=== PATIENT | female | born 1970 | race Caucasian/White ===

== ENCOUNTER 2020-07-07 09:03 | Day surgery (SDC) | payer OTHER, MEDICARE ==
[2020-07-07] MEDS ORDERED: Depo-Medrol 40 MG/ML IM ONE (09:04)
[2020-07-07] MEDS ORDERED: BUPIVACAINE 0.5% VIAL IJ ONE (09:04)
[2020-07-07] MEDS ORDERED: Ketamine HCl 50 MG/ML ONE (10:58)
[2020-07-07] MEDS ORDERED: DIPRIVAN 200 MG/20 ML IV ONE (10:58)
--- NOTE | 2020-07-07 11:37 | XRAY ---
Indication: Bilateral L4-S1 MBB. Intraoperative fluoroscopy was provided for 17 seconds. Single digital spot image submitted for interpretation demonstrate posterior needle tips projecting over the expected left and right L4-S1 nerve roots. Correlate with intraoperative findings/report.
--- NOTE | 2020-07-07 11:47 | XRAY ---
17 seconds fluoroscopy time in surgery for bilateral L4-S1 MBB.
[2020-07-07] MEDS ORDERED: Lactated Ringers 1,000 ML IV ONE (16:46)
== END 2020-07-07 11:25 | disposition home or self-care (01) ==
LOC: SDC-PAIN 09:03
PROVIDERS: ATTEND Psychiatry & Neurology Pain Medicine
DX: M47.816 Spondylosis without myelopathy or radiculopathy, lumbar region (principal); E11.9 Type 2 diabetes mellitus without complications; I10 Essential (primary) hypertension; E78.5 Hyperlipidemia, unspecified; Z79.899 Other long term (current) drug therapy; G47.30 Sleep apnea, unspecified
CPT/HCPCS: 64493; 64494; 72020; 77002; 82947; 82962; 84703; J1030; J2704

== ENCOUNTER 2020-08-18 07:51 | Day surgery (SDC) | payer OTHER, MEDICARE ==
[2020-08-18] MEDS ORDERED: Xylocaine 1% Vial 30 ML PF IJ ONE (07:52)
[2020-08-18] MEDS ORDERED: Depo-Medrol 40 MG/ML IM ONE (07:52)
[2020-08-18] MEDS ORDERED: BUPIVACAINE 0.5% VIAL IJ ONE (07:52)
--- NOTE | 2020-08-18 12:16 | XRAY ---
40 seconds fluoroscopy time in surgery for left L4-S1 RFA.
--- NOTE | 2020-08-18 12:21 | XRAY ---
Indication: Left L4-S1 RFA. Intraoperative fluoroscopy was provided for 40 seconds. 3 digital spot images submitted for interpretation demonstrate posterior needle tips projecting over the expected left L4-S1 nerve roots. Correlate with intraoperative findings/report.
[2020-08-18] MEDS ORDERED: Lactated Ringers 1,000 ML IV ONE (16:04)
== END 2020-08-18 09:37 | disposition home or self-care (01) ==
LOC: SDC-PAIN 07:51
PROVIDERS: ATTEND Psychiatry & Neurology Pain Medicine
DX: M47.816 Spondylosis without myelopathy or radiculopathy, lumbar region (principal); E11.9 Type 2 diabetes mellitus without complications; I10 Essential (primary) hypertension; G47.30 Sleep apnea, unspecified; E78.5 Hyperlipidemia, unspecified
CPT/HCPCS: 64635; 64636; 72100; 77002; 82947; 82962; 84703; J1030; J2001; J2704

== ENCOUNTER 2020-10-13 07:45 | Day surgery (SDC) | payer OTHER, MEDICARE ==
[2020-10-13] MEDS ORDERED: BUPIVACAINE 0.5% VIAL IJ ONE (07:46)
[2020-10-13] MEDS ORDERED: Xylocaine 1% Vial 30 ML PF IJ ONE (07:46)
[2020-10-13] MEDS ORDERED: Depo-Medrol 40 MG/ML IM ONE (07:46)
[2020-10-13] MEDS ORDERED: DIPRIVAN 200 MG/20 ML IV ONE (07:52)
[2020-10-13] MEDS ORDERED: Ketamine HCl 50 MG/ML ONE (07:52)
--- NOTE | 2020-10-13 12:51 | XRAY ---
Indication: Right L4-S1 RFA. Intraoperative fluoroscopy was provided for 53 seconds. 3 digital spot images submitted for interpretation demonstrates posterior needle tips projecting over the expected right L4-S1 nerve roots. Correlate with intraoperative findings/report.
--- NOTE | 2020-10-13 12:56 | XRAY ---
53 seconds fluoroscopy time in surgery for right L4-S1 RFA.
[2020-10-13] MEDS ORDERED: Lactated Ringers 1,000 ML IV ONE (14:03)
== END 2020-10-13 10:41 | disposition home or self-care (01) ==
LOC: SDC-PAIN 07:45
PROVIDERS: ATTEND Psychiatry & Neurology Pain Medicine
DX: M47.816 Spondylosis without myelopathy or radiculopathy, lumbar region (principal); E11.9 Type 2 diabetes mellitus without complications; I10 Essential (primary) hypertension; G47.30 Sleep apnea, unspecified; E78.5 Hyperlipidemia, unspecified; K76.0 Fatty (change of) liver, not elsewhere classified
CPT/HCPCS: 64635; 64636; 72100; 77002; 82947; 84703; J1030; J2001; J2704

== ENCOUNTER 2020-11-10 08:28 | Day surgery (SDC) | payer MEDICARE, OTHER ==
[2020-11-10] MEDS ORDERED: BUPIVACAINE 0.5% VIAL IJ ONE (08:29)
[2020-11-10] MEDS ORDERED: Ketamine HCl 50 MG/ML ONE (09:56)
[2020-11-10] MEDS ORDERED: DIPRIVAN 200 MG/20 ML IV ONE (09:56)
--- NOTE | 2020-11-10 11:36 | XRAY ---
8 seconds fluoroscopy time in surgery for genicular nerve block of the left knee.
--- NOTE | 2020-11-10 11:36 | XRAY ---
11 seconds fluoroscopy time in surgery for genicular nerve block of the right knee.
--- NOTE | 2020-11-10 11:37 | XRAY ---
Indication: Right knee genicular nerve block. Intraoperative fluoroscopy provided for 11 seconds. 2 digital spot images of the right knee submitted for interpretation demonstrates anterior needle tips projecting medial/lateral supracondylar and medial tibial plateau. Correlate with intraoperative findings/report.
--- NOTE | 2020-11-10 11:47 | XRAY ---
Indication: Left knee genicular nerve block. Intraoperative fluoroscopy provided for 8 seconds. 2 digital spot images of the left knee submitted for interpretation demonstrates anterior needle tips projecting medial/lateral supracondylar and medial tibial plateau. Correlate with intraoperative findings/report.
[2020-11-10] MEDS ORDERED: Lactated Ringers 1,000 ML IV ONE (16:09)
== END 2020-11-10 10:37 | disposition home or self-care (01) ==
LOC: SDC-PAIN 08:28
PROVIDERS: ATTEND Psychiatry & Neurology Pain Medicine
DX: M17.0 Bilateral primary osteoarthritis of knee (principal); F41.9 Anxiety disorder, unspecified; F32.9 Major depressive disorder, single episode, unspecified; I73.9 Peripheral vascular disease, unspecified; E11.9 Type 2 diabetes mellitus without complications; I10 Essential (primary) hypertension; G47.30 Sleep apnea, unspecified; E78.5 Hyperlipidemia, unspecified; Z79.899 Other long term (current) drug therapy
CPT/HCPCS: 64454; 73560; 77002; 82947; 84703; J2704

== ENCOUNTER 2021-01-05 06:27 | Day surgery (SDC) | payer MEDICARE, OTHER ==
[2021-01-05] MEDS ORDERED: Xylocaine 1% Vial 30 ML PF IJ ONE (06:28)
[2021-01-05] MEDS ORDERED: Depo-Medrol 40 MG/ML IM ONE (06:28)
[2021-01-05] MEDS ORDERED: BUPIVACAINE 0.5% VIAL IJ ONE (06:28)
[2021-01-05] MEDS ORDERED: DIPRIVAN 200 MG/20 ML IV ONE ×2 (07:31→07:47)
--- NOTE | 2021-01-05 09:24 | XRAY ---
Indication: Left knee genicular nerve ablation. Intraoperative fluoroscopy provided for 26 seconds. 2 digital spot images of the left knee submitted for interpretation demonstrate anterior needle tips projecting medial/lateral supracondylar and medial tibial plateau. Correlate with intraoperative findings/report.
--- NOTE | 2021-01-05 09:24 | XRAY ---
26 seconds fluoroscopy time in surgery for genicular nerve ablation of the left knee.
[2021-01-05] MEDS ORDERED: Lactated Ringers 1,000 ML IV ONE (15:58)
== END 2021-01-05 08:14 | disposition home or self-care (01) ==
LOC: SDC-PAIN 06:27
PROVIDERS: ATTEND Psychiatry & Neurology Pain Medicine
DX: M17.12 Unilateral primary osteoarthritis, left knee (principal); E11.9 Type 2 diabetes mellitus without complications; I10 Essential (primary) hypertension; G47.30 Sleep apnea, unspecified; E78.5 Hyperlipidemia, unspecified; Z79.899 Other long term (current) drug therapy
CPT/HCPCS: 73560; 77002; 82947; 84703; J1030; J2001; J2704

== ENCOUNTER 2021-01-12 08:02 | Day surgery (SDC) | payer MEDICARE, OTHER ==
[2021-01-12] MEDS ORDERED: BUPIVACAINE 0.5% VIAL IJ ONE (08:03)
[2021-01-12] MEDS ORDERED: Xylocaine 1% Vial 30 ML PF IJ ONE (08:03)
[2021-01-12] MEDS ORDERED: Depo-Medrol 40 MG/ML IM ONE (08:03)
[2021-01-12] MEDS ORDERED: DIPRIVAN 200 MG/20 ML IV ONE ×2 (09:51→10:01)
[2021-01-12] MEDS ORDERED: Lactated Ringers 1,000 ML IV ONE (16:29)
--- NOTE | 2021-01-12 17:49 | XRAY ---
34 seconds of fluoroscopy was used in surgery for a right genicular nerve ablation.
== END 2021-01-12 10:21 | disposition home or self-care (01) ==
LOC: SDC-PAIN 08:02
PROVIDERS: ATTEND Psychiatry & Neurology Pain Medicine
DX: M17.11 Unilateral primary osteoarthritis, right knee (principal); E11.9 Type 2 diabetes mellitus without complications; I10 Essential (primary) hypertension; K76.0 Fatty (change of) liver, not elsewhere classified; G47.30 Sleep apnea, unspecified; E78.5 Hyperlipidemia, unspecified; Z79.899 Other long term (current) drug therapy
CPT/HCPCS: 64624; 73560; 77002; 82947; 84703; J1030; J2001; J2704

== ENCOUNTER 2021-07-15 08:07 | Day surgery (SDC) | payer MEDICARE, OTHER ==
[2021-07-15] MEDS ORDERED: Depo-Medrol 40 MG/ML IM ONE (08:08)
[2021-07-15] MEDS ORDERED: Xylocaine 1% Vial 30 ML PF IJ ONE (08:08)
[2021-07-15] MEDS ORDERED: BUPIVACAINE 0.5% VIAL IJ ONE (08:08)
[2021-07-15] MEDS ORDERED: DIPRIVAN 200 MG/20 ML IV ONE (09:00)
[2021-07-15] MEDS ORDERED: Lactated Ringers 1,000 ML IV ONE (09:52)
--- NOTE | 2021-07-15 10:43 | XRAY ---
Indication: Left L4-S1 RFA. Intraoperative fluoroscopy provided for 16 seconds. 3 digital spot image submitted for interpretation demonstrate posterior needle tips projecting over the expected left L4-S1 nerve roots. Correlate with intraoperative findings/report.
--- NOTE | 2021-07-15 12:23 | XRAY ---
16 seconds fluoroscopy time in surgery for left L4-S1 RFA.
== END 2021-07-15 09:09 | disposition home or self-care (01) ==
LOC: SDC-PAIN 08:07
PROVIDERS: ATTEND Psychiatry & Neurology Pain Medicine
DX: M47.816 Spondylosis without myelopathy or radiculopathy, lumbar region (principal); E11.9 Type 2 diabetes mellitus without complications; I10 Essential (primary) hypertension; E78.5 Hyperlipidemia, unspecified; Z79.899 Other long term (current) drug therapy
CPT/HCPCS: 64635; 64636; 72100; 77002; 82947; 84703; J1030; J2001; J2704